=== PATIENT | female | born 1995 | race Caucasian/White ===

== ENCOUNTER 2023-02-28 00:35 | Day surgery (SDC) | payer BC, SELFPAY ==
[2023-02-15 15:35] VITALS: BMI 22.2
--- NOTE | 2023-02-26 09:37 | SUR.PREOP ---
Patient called regarding upcoming procedure. Reviewed preop instructions, appointment times, and procedure prep.
[2023-02-28 11:01] VITALS: BP 123/75; PULSE 87; RESP 18; TEMP 36.1; O2SAT 100
[2023-02-28] MEDS: LACTATED RINGERS 1,000 ML 150 ML IV CONT (11:17)
[2023-02-28 11:34] LABS: SPREG INTERNAL CONTROL Positive; Serum Qual hCG Negative
--- NOTE | 2023-02-28 11:50 | P.PNAN_ITS ---
Anes - Initial Pre Proc Eval Procedure: Operation Date: 02/28/23 13:00 Proposed Procedures p Flexible Sigmoidoscopy - Galen Cunningham MD s [facility] Hemorrhoid Treatment - Galen Cunningham MD Date/Time: 02/28/23 11:50 Surgeon: Galen Cunningham MD Pre Op Diagnosis: Other specific symptoms/signs involving digest sys Patient Data Age: 27 Gender: F Height: 1.6 m Weight: 55.1 kg Last Vital Signs Temp 36.1 C L 02/28/23 11:01 Pulse 87 02/28/23 11:01 Resp 18 02/28/23 11:01 BP 123/75 02/28/23 11:01 Pulse Ox 100 02/28/23 11:01 O2 Del Method Room Air 02/28/23 11:01 Allergies Allergy/AdvReac Type Severity Reaction Status Date / Time peanut Allergy Unknown Unknown Verified 02/28/23 11:00 tree nuts Allergy Unknown Unknown Uncoded 02/28/23 11:00 Home Medications Medication Instructions Recorded Confirmed Type albuterol 90 mcg-budesonide 80 2 inh inhalation ONCE 02/14/23 02/15/23 History mcg/actuation HFA aerosol inhaler cetirizine 10 mg capsule (Zyrtec) 10 mg PO DAILY PRN allergies 02/14/23 02/15/23 History clomiphene citrate 50 mg tablet 25 mg PO MONTHLY 02/14/23 02/15/23 History (Clomid) diphenhydramine HCl 25 mg tablet 25 mg PO QHS PRN allergies 02/14/23 02/15/23 History (Benadryl Allergy) docosahexaenoic acid 200 mg mg PO 02/14/23 02/14/23 History capsule ( DHA) hydrocortisone acetate 25 mg 25 mg RECTAL BID #20 ea 02/14/23 02/15/23 Rx rectal suppository (Anusol-HC) ibuprofen 200 mg tablet 200 mg PO Q6H PRN Pain 02/14/23 02/15/23 History Laboratory Tests 02/28/23 11:15 Serum HCG, Qual Negative Patient hx anesthesia problems: none Family hx anesthesia problems: none Results Review: All pre-operative results and documents have been reviewed as part of the pre- operative evaluation. [facility] Past Medical History Medical History Change in bowel habits Constipation Internal hemorrhoid Rectal pressure Social History Social History Smoking status: Never smoker Substance use type: does not use Living arrangements: with family Spiritual care concerns: No Anes - Eval Final PreProcedure Day of Procedure 02/28/23 11:50 Patient weight: normal Heart: regular rate and rhythm Lungs: clear to auscultation Airway: Mallampati scale class II Neurological: alert and oriented Last oral intake: >/= 8 hours ASA classification: II Emergent: no Anesthetic plan: proceed Anesthesia type and monitoring: general GIVS and standard monitoring Results Review: All pre-operative results and documents have been reviewed as part of the pre- operative evaluation. Informed Consent: The patient's anesthetic plan and its attendant risks and benefits were discus sed with the patient/family/POA. Questions were solicited and answers provided to the satisfaction of the patient/family/POA.
--- NOTE | 2023-02-28 12:07 | WPDHPUPDATE1 ---
History and Physical Update Update Date/Time: 02/28/23 12:07 History and Physical has been reviewed, including an updated exam of the patient. There are NO changes in the patient's condition. Risks, benefits, and alternatives have been discussed and questions answered. Patient agrees to proceed with procedure.
--- NOTE | 2023-02-28 12:27 | W.PM.PROC2 ---
Procedure Note - Detailed Date of Procedure 02/28/23 Pre-op Diagnosis hemorrhoids Post-op Diagnosis Same Procedure Performed irc of internal hemorrhoids Surgeon Galen Cunningham MD Anesthesia MAC (also had colonoscopy) Findings grade II internal hemorrhoids, no fissure, no bleeding. Description of Procedure noted small size internal hemorrhoids with anoscope, then advanced IRC probe and hemorrhoid treated for 1.5 seconds x5
[2023-02-28 12:28] VITALS: BP 103/64; PULSE 99; RESP 20; O2SAT 100
[2023-02-28 12:38] VITALS: BP 117/75; PULSE 93; RESP 16; O2SAT 100
[2023-02-28 12:48] VITALS: BP 120/73; PULSE 95; RESP 22; O2SAT 100
== END 2023-02-28 12:48 | disposition home or self-care (01) ==
PROVIDERS: PCP Physician Assistant; Visit Provider Internal Medicine Gastroenterology
PROC: 0DJD8ZZ Inspection of Lower Intestinal Tract, Via Natural or Artificial Opening Endoscopic (ICD-10-PCS; CPT 45330; principal; 2023-02-28 13:00)
PROC: (CPT 46930; 2023-02-28 13:00)
DX: K64.1 Second degree hemorrhoids (principal); D12.8 Benign neoplasm of rectum; K64.8 Other hemorrhoids; R19.8 Other specified symptoms and signs involving the digestive system and abdomen; J45.909 Unspecified asthma, uncomplicated; K59.00 Constipation, unspecified; Z79.51 Long term (current) use of inhaled steroids
CPT/HCPCS: 46930; 45385; 36415; 84703; 88305; J2704; J7120

== ENCOUNTER 2023-07-23 16:30 | Outpatient (RCR) | payer BC, SELFPAY ==
--- NOTE | 2023-06-11 16:04 | OPREHPOC ---
Outpatient Therapy Plan of Care This is a Multidisciplinary Plan of Care that may contain components documented by all disciplines (PT, OT, and ST.) PT Problem 1 PT Problem #1 Knowledge Deficit PT Goal 1 Goal 1. Patient will perform independent HEP Target Visit 3 PT Problem 2 PT Problem #2 Pain PT Goal 1 Goal 1. Patient will report no rectal pain/pressure or pain with intercourse for at least 2 weeks Target Visit 10
--- NOTE | 2023-06-11 16:05 | OPREHPOC ---
Outpatient Therapy Plan of Care This is a Multidisciplinary Plan of Care that may contain components documented by all disciplines (PT, OT, and ST.) PT Problem 1 PT Problem #1 Knowledge Deficit PT Goal 1 Goal 1. Patient will perform independent HEP Target Visit 2 PT Problem 2 PT Problem #2 Pain PT Goal 1 Goal 1. Patient will report no rectal pain/pressure or pain with intercourse for at least 2 weeks Target Visit 4
--- NOTE | 2023-06-11 16:05 | PTOPEVAL1 ---
Assessment and note entered by Madhuri Corbett DPT Evaluation Information Assessment Status Evaluation Subjective Information Pt reports feeling near constant rectal pressure since December. Pt had a rectal exam from GI and was told she had some pelvic floor spasms. Nothing found on colonoscopy. Pt is also 14 weeks . Highest pain recently 5/10 and lowest 0/ 10. Also has had pain with intercourse. Voids 5-7 times a day prior to , 1 time at night. Denies pain with urination. Can hold urine as long as needed. Denies urine leakage. BM daily as she has been doing miralax and colace. Can hold stool as long as needed and no fecal incontinence. Pt has been 2 other times but no deliveries. No other pertinent [employer] or b/b history. Patient goal: see if it can help with pain Return to MD is not scheduled, sees OB-[facility] tomorrow. Reported Pain Level Pain Score 0: Self Report Assessment PT Clinical Summary The patient is presenting to skilled therapy with rectal pain/pressure and pain with intercourse since December 2022. She likely demonstrates pelvic floor muscle spasms. She is currently 14 weeks and will fully assess pelvic floor next visit with permission from OB-[facility] [employer]ICE [facility]. She will benefit from therapy to assess and address muscular impairments in pain in order to return to full function. Plan of Care Interventions Hot Pack/Cold Pack,Manual Therapy,Neuro Re- education,Patient/Caregiver Education,Therapeutic Activities,Therapeutic Exercise PT Services Indicated Yes Treatment Frequency and 1 time a week for 4 visits Duration These treatments will address the objective and functional deficits as defined above. The patient will be advanced safely and appropriately in order for the patient to progress towards his/her prior level of function. Additional exercises will be introduced and as well as a comprehensive home exercise program upon discharge, if needed, ?to ensure carryover of functional gains achieved in the clinic. This treatment plan has been reviewed and agreement upon by the patient.
--- NOTE | 2023-07-02 16:01 | OPREHPOC ---
Outpatient Therapy Plan of Care This is a Multidisciplinary Plan of Care that may contain components documented by all disciplines (PT, OT, and ST.) PT Problem 1 PT Problem #1 Knowledge Deficit PT Goal 1 Goal 1. Patient will perform independent HEP Target Visit 2 Progress Met PT Problem 2 PT Problem #2 Pain PT Goal 1 Goal 1. Patient will report no rectal pain/pressure or pain with intercourse for at least 2 weeks New goal 07/02/23 2. No pain with pelvic floor palpation to decrease pain with BM, intercourse, delivery, etc. Target Visit 5 Progress Partially Met
--- NOTE | 2023-07-02 16:01 | PTOPPROG ---
Assessment and note entered by Madhuri Corbett DPT Evaluation Information Assessment Status Progress Subjective Information No real pain in the last week or so. Some soreness after last therapy session for about a day. No pain with BM and has not had sex recently to assess. No urine leakage or pain with urination. Assessment PT Clinical Summary The patient has made good progress in therapy and reports overall decreased pain. She continues to have some pain with pelvic floor palpation and will benefit from further therapy to address pain and to return to full function. Plan of Care Interventions Hot Pack/Cold Pack,Manual Therapy,Neuro Re- education,Patient/Caregiver Education,Therapeutic Activities,Therapeutic Exercise PT Services Indicated Yes Treatment Frequency and 1 visit in 2-3 weeks Duration These treatments will address the objective and functional deficits as defined above. The patient will be advanced safely and appropriately in order for the patient to progress towards his/her prior level of function. Additional exercises will be introduced and as well as a comprehensive home exercise program upon discharge, if needed, ?to ensure carryover of functional gains achieved in the clinic. This treatment plan has been reviewed and agreement upon by the patient.
--- NOTE | 2023-07-23 16:47 | PTOPPROG ---
Assessment and note entered by Madhuri Corbett DPT Evaluation Information Assessment Status Progress Subjective Information Pt reports she has overall been feeling ok since her last therapy session. Highest pain 4-5/10 and lowest 0/10. Pain has not been daily. Assessment PT Clinical Summary Pt reports she has been mostly feeling pain free since last visit. She has had mild pain recently and discussed modifications to HEP now that patient is more and having difficulty with different positions. Pt reports she feels confident not scheduling more therapy visits at this time and will follow up with PT as needed. Plan of Care Interventions Hot Pack/Cold Pack,Manual Therapy,Neuro Re- education,Patient/Caregiver Education,Therapeutic Activities,Therapeutic Exercise PT Services Indicated No Treatment Frequency and hold therapy, potential discharge Duration These treatments will address the objective and functional deficits as defined above. The patient will be advanced safely and appropriately in order for the patient to progress towards his/her prior level of function. Additional exercises will be introduced and as well as a comprehensive home exercise program upon discharge, if needed, ?to ensure carryover of functional gains achieved in the clinic. This treatment plan has been reviewed and agreement upon by the patient.
--- NOTE | 2023-08-08 10:46 | PTOPDC ---
Assessment and note entered by Madhuri Corbett DPChristiano Evaluation Information Assessment Status Discharge - Pt Not Present Subjective Information - Assessment PT Clinical Summary The patient has not needed to schedule further visits at this time. She will be discharged this date. Plan of Care PT Services Indicated No
== END 2023-08-08 11:04 | disposition home or self-care (01) ==
LOC: ANHGOSHPT 16:30
PROVIDERS: PCP Physician Assistant
DX: M99.05 Segmental and somatic dysfunction of pelvic region (principal)
CPT/HCPCS: 97110; 97112; 97140; 97161; 97530